=== PATIENT | female | born 1995 | race Hispanic/Latino ===

== ENCOUNTER 2017-02-26 07:50 | Day surgery (SDC) | payer BC ==
[~2017-02-26] VITALS: Ht 160 cm; Wt 70.8 kg
--- NOTE | 2017-02-26 09:15 | NUR ---
PT IN GOOD ATTITUDE, HAS GOOD FAMILY SUPPORT, HER MOTHER IS WITH HER. SHE WAS VERY RECEPTIVE TO PRAYER.
--- NOTE | 2017-02-26 09:59 | NUR ---
02/26/17 0959 Brad Tavares 0955: IV RATE INCREASED DUE TO BP.
--- NOTE | 2017-02-26 11:17 | NUR ---
1045: PATIENT BACK IN DAY SURGERY ROOM FROM PACU. DENIES PAIN. DROWSY. SLEEPING, BUT EASILY AWAKENS. IV SITE WNL. SCDs ON. CALL LIGHT WITHIN REACH. MOTHER AT BEDSIDE.
[2017-02-26] MEDS ORDERED: HYCET 7.5 MG-3473 ML PO (13:44)
--- NOTE | 2017-02-26 15:15 | NUR ---
1330: PATIENT ASSISTED OOB AND TO BATHROOM. GAIT STEADY. VOID WITHOUT DIFFICULTY. STAND BY ASSIST BACK TO ROOM. PATIENT TOLERATED ICE CREAM. WORKING ON POPSICLE. PATIENT GETTING DRESSED. 1400: DISCHARGE INSTRUCTIONS GIVEN TO PATIENT AND MOTHER. IV DC'D WNL. DRESSING APPLIED. 1410: PATIENT DISCHARGED TO HOME WITH MOTHER VIA WHEELCHAIR.
--- NOTE | 2017-04-30 09:33 | OR ---
[facility] [address], [place] [address] Signed DATE OF SERVICE: 02/26/2017 PREOPERATIVE DIAGNOSIS: Chronic tonsillitis with tonsillar hypertrophy. POSTOPERATIVE DIAGNOSIS: Chronic tonsillitis with tonsillar hypertrophy. PROCEDURE: Tonsillectomy. SURGEON: Ishan Saldana M.D. ANESTHESIA: General orotracheal. EFRAÍN Jaimes. PREOPERATIVE HISTORY: Iram is a 21-year-old young lady with chronic tonsillitis, tonsillar hypertrophy, numerous episodes of tonsillitis with tonsilliths, taken to the operating room for the above-mentioned procedure. OPERATIVE PROCEDURE AND FINDINGS: After informed consent, the patient was taken to the operating room, placed in supine position where general orotracheal anesthesia was induced. The patient and procedure were verified. The patient was repositioned. McIvor mouth gag placed into suspension. Head light exam of the pharynx showed markedly hypertrophic cryptic tonsillolithic tonsils. The left tonsil was grasped with its neck, retracted medially and removed from its fossa with a mucosal sparing incision with Coblation. Field was dry after the procedure. Same procedure on the right tonsil. Tonsils were sent to Pathology for permanent inspection. Reinspection of the tonsil fossa showed no bleeding points. The pharynx was suctioned clear of blood and secretions. The mouth gag was removed. The patient was awakened, extubated, transported to recovery room in good condition. No complications. BLOOD LOSS: Minimal. SPECIMEN: To Pathology. DRAINS: No drains. Ishan Saldana MD GC/Eloise Electronically Signed By: ISHAN SALDANA MD 04/30/17 0933 PATIENT NAME: ANNE RENTERIA OPERATIVE REPORT DATE OF : [birth year] PHYSICIAN: ISHAN SALDANA MD REPORT #: [id number] REPORT IS CONFIDENTIAL AND NOT TO BE RELEASED WITHOUT AUTHORIZATION [address] [place], [place] [address] Signed /[id number] Electronically Signed By: ISHAN SALDANA MD 04/30/17 0933 PATIENT NAME: ANNE RENTERIA OPERATIVE REPORT DATE OF : [birth year] PHYSICIAN: ISHAN SALDANA MD REPORT #: [id number] REPORT IS CONFIDENTIAL AND NOT TO BE RELEASED WITHOUT AUTHORIZATION
== END 2017-02-26 14:10 | disposition home or self-care (01) ==
LOC: DS 07:50
PROVIDERS: Otolaryngology
PROC: 0CBPXZZ Excision of Tonsils, External Approach (ICD-10-PCS; principal; 2017-02-26 07:45)
DX: J35.01 Chronic tonsillitis (principal); J45.909 Unspecified asthma, uncomplicated; Z88.1 Allergy status to other antibiotic agents; Z88.5 Allergy status to narcotic agent
CPT/HCPCS: 00170; J0330; J1100; J1885; J2250; J2405; J2704; J2765; J3010; J7120